=== PATIENT | female | born 1965 | race Caucasian/White ===

== ENCOUNTER 2017-07-16 05:45 | Day surgery (SDC) | payer BC ==
[2017-07-16] MEDS ORDERED: DIPRIVAN 200 MG/20 ML IV ONE (05:46)
[2017-07-16] MEDS ORDERED: Versed 2 MG/2 ML Injection IV ONE (05:46)
[2017-07-16] MEDS: Lactated Ringers 1,000 ML IV SCH ×2 (06:11→06:21)
[2017-07-16] MEDS ORDERED: Lactated Ringers 1,000 ML IV ONE ×2 (06:42→07:26)
[2017-07-16 07:58] VITALS: PULSE 51
[2017-07-16 08:21] VITALS: BP 142/86; O2SAT 100
--- NOTE | 2017-07-16 09:12 | OP ---
SURGERY DATE/TIME: 07/16/2017 0700 PREOPERATIVE DIAGNOSIS: Screening colonoscopy. POSTOPERATIVE DIAGNOSES: 1) Normal colon. 2) Scattered diverticulosis. PROCEDURE: Colonoscopy. SURGEON: Eliseo Roberson M.D. ANESTHESIA: MAC by Fritz Lawson CRNA. ESTIMATED BLOOD LOSS: None. SPECIMENS: None. DESCRIPTION OF PROCEDURE: After informed written consent was obtained, the patient was taken to the endoscopy suite. She underwent monitored anesthesia and a digital rectal exam showed normal sphincter tone and no internal lesions. The colonoscope was inserted into the rectum and sequentially the entire colonic mucosa was traversed. Scattered diverticula were noted throughout but mostly in the sigmoid colon area. The level of cecum was reached and verified with direct visualization of ileocecal valve. Upon withdrawal careful mucosal inspection revealed no gross abnormalities. Prior to withdrawal retroflexion was performed and showed no internal lesions. The scope was removed and the patient was transferred to the recovery room in excellent condition.
== END 2017-07-16 08:15 | disposition home or self-care (01) ==
LOC: SDC 05:45
PROVIDERS: ATTEND Family Medicine
DX: Z12.11 Encounter for screening for malignant neoplasm of colon (principal); K57.90 Diverticulosis of intestine, part unspecified, without perforation or abscess without bleeding
CPT/HCPCS: J2250; J2704

== ENCOUNTER 2019-08-16 09:32 | Day surgery (SDC) | payer BC, OTHER ==
--- NOTE | 2019-08-13 10:54 | HP ---
DATE OF SURGERY: 08/16/2019 HISTORY OF PRESENT ILLNESS: The patient is a 53 year old the last couple of months had nonhealing lesion of biopsy of squamous cell carcinoma. She denies any prior radiation treatment. PAST MEDICAL HISTORY: Diabetes. PAST SURGICAL HISTORY: Hysterectomy in the past. She had biopsy of an arm lesion that was squamous cell carcinoma. MEDICATIONS: She takes a water pill, aspirin, Metformin. She has also been on some acyclovir, aspirin, citalopram, hydrochlorothiazide, ibuprofen, Metformin. ALLERGIES: NKDA. FAMILY HISTORY: Lung cancer. Brain cancer. Arthritis. SOCIAL HISTORY: Denies alcohol abuse. Does drink alcohol socially. REVIEW OF SYSTEMS: Fourteen systems reviewed negative or noncontributory as above and per preadmission questionnaire. PHYSICAL EXAMINATION: GENERAL: No acute distress. HEENT: Sclerae nonicteric. NECK: No JVD. CHEST: Clear to auscultation. CVS: Regular rate and rhythm. ABDOMEN: Soft. EXTREMITIES: She has an area nonhealing upper right arm lesion biopsy. NEURO: Alert, oriented, moving extremities grossly symmetrically. PSYCH: Appropriate mood and affect. IJMPRESSION: Squamous cell carcinoma in need of wide excision of biopsy site at right upper arm. Risks and benefits explained in detail including but not limited to bleeding or infection, risk of wound dehiscence or infection possibly requiring packing, risk of involved margins possibly requiring wider excision and/or skin graft at later date, general risk of anesthesia, deep venous thrombosis, pulmonary embolism, pneumonia, perioperative risk of aches, pain, bloating, constipation and/or loose stool, risk of involved margins possibly requiring other excision or treatment, general risk of aches, pains, burning or numbness possibly [employer]. She understands and agrees to the planned procedure, will proceed with excisional biopsy wide excision of biopsy site of squamous cell carcinoma of right upper arm as an outpatient.
[~2019-08-16 09:32] MED LIST: Lactated Ringers 1,000 ML IV ONE; Lactated Ringers 1,000 ML IV SCH; Sensorcaine 0.25% 10 ML ONE
[2019-08-16] MEDS ORDERED: Versed 2 MG/2 ML Injection ONE (10:03)
[2019-08-16] MEDS ORDERED: SUBLIMAZE 100 MCG/2 ML ONE ×2 (10:03→13:46)
[2019-08-16] MEDS ORDERED: Xylocaine-Mpf 2% 5 Ml Vial ONE (10:03)
[2019-08-16] MEDS ORDERED: DIPRIVAN 200 MG/20 ML IV ONE (10:03)
[2019-08-16 10:15] VITALS: PULSE 51
[2019-08-16] MEDS ORDERED: KEFZOL 1 GM ONE (10:16)
[2019-08-16] MEDS ORDERED: Lactated Ringers 1,000 ML IV ONE (10:20)
[2019-08-16 10:53] LABS: BLOOD UREA NITROGEN 15 mg/dL (7-17); CHLORIDE 109 mmol/L (98-107); Calcium 9.2 mg/dL (8.4-10.2); Carbon Dioxide 25 mmol/L (22-30); Creatinine 1 0.58 mg/dL (0.52-1.04); Glucose 109 mg/dL (74-106); Potassium 4.3 mmol/L (3.5-5.1); SODIUM 140 mmol/L (137-145)
[2019-08-16 15:11] VITALS: O2SAT 95
[2019-08-16 15:13] VITALS: BP 143/85
--- NOTE | 2019-08-17 10:01 | OP ---
SURGERY DATE/TIME: 08/16/2019 7707 PREOPERATIVE DIAGNOSIS: Squamous cell carcinoma biopsy in need of wide excision right upper arm. POSTOPERATIVE DIAGNOSIS: Squamous cell carcinoma biopsy in need of wide excision right upper arm. PROCEDURE: Wide excision squamous cell carcinoma biopsy site right upper arm approximately 2.5 cm with margins with local advancement flap closure approximately 5.5 cm. SURGEON: Dr. Favian Blair. ANESTHESIA: General. ESTIMATED BLOOD LOSS: Minimal. INDICATIONS: As noted above. Risks and benefits explained in detail and not limited to and consent obtained. The site was marked in the preoperative holding area. DESCRIPTION OF PROCEDURE AND FINDINGS: Taken to the operating room. General anesthesia induced. The arm was prepped and draped in usual sterile fashion. After official time out and no disagreement with planned procedure, marking out to normal appearing skin on either side of this and what was felt to be adequate margin to allow for closure. Dissection is carried down to normal appearing deep subcutaneous tissue and the specimen passed off. It measured about 2.5 cm lesion with margins requiring about 5.5 cm long spindle shaped excision pattern undermining the flaps on either side. They were advanced back towards the midline. The flap is closed with interrupted 3-0 Vicryl in deep and superficial subcu. Skin closed with 4-0 Vicryl and some interrupted 3-0 Prolene used to reinforce the area given the location and size of excision pattern. Steri-Strips and sterile dressing applied. The patient tolerated the procedure well. There were no immediate complications. Findings discussed with the family out in the waiting room.
== END 2019-08-16 14:55 | disposition home or self-care (01) ==
LOC: SDC 09:32
PROVIDERS: ATTEND Surgery
DX: C44.622 Squamous cell carcinoma of skin of right upper limb, including shoulder (principal); E11.9 Type 2 diabetes mellitus without complications; Z79.899 Other long term (current) drug therapy; Z80.1 Family history of malignant neoplasm of trachea, bronchus and lung; Z80.8 Family history of malignant neoplasm of other organs or systems
CPT/HCPCS: 36415; 80048; J0690; J2250; J2704; J3010